=== PATIENT | female | born 1950 | race Caucasian/White ===

== ENCOUNTER 2019-11-02 00:12 | Emergency (ER) | payer MEDICARE, OTHER ==
--- NOTE | 2019-11-02 00:31 | ED Physician Documentation ---
PD HPI HEAD INJURY - Stated complaint Stated Complaint: EYE PX/FALL - Chief complaint Chief Complaint: Trauma Hd/Nk - History obtained from History obtained from: Patient - History of Present Illness Mechanism of head injury: Fell Where head injury occurred: A house / apartment Timing - onset: How many hours ago (1.5) Pain level now: 4 Location of injury: Right, Front Quality of pain: Pain Associated symptoms: LOC (patient is uncertain if she lost consciousness). No: Nausea / vomiting, Neck pain Contributing factors: No: Anticoagulated, Intoxicated Similar symptoms before: Has not had sx before Recently seen: Not recently seen - Additional information Additional information: patient is visiting from [place]. Approximately 90 minutes [employer], she was ambulating in the house in which she is staying and became dizzy. She denies vertigo; she describes it as lightheadedness, feeling unsteady, and generalized weakness. She fell to the ground, uncertain if she lost consciousness. She says it took her several attempts to stand back up due to ongoing lightheadedness and generalized weakness, but was eventually able to get up and alert others in the house of her injury. She sustained right facial injury with eyelid laceration. C/o right facial and periorbital pain, denies generalized headache, denies chest pain, shortness of breath. She is a retired student worker Review of Systems Eyes: denies: Loss of vision, Decreased vision, Photophobia Cardiac: reports: Reviewed and negative Respiratory: reports: Reviewed and negative GI: reports: Reviewed and negative : denies: Incontinent Musculoskeletal: reports: Extremity pain (mild left thumb pain, mild left wrist pain). denies: Neck pain, Back pain Neurologic: reports: Generalized weakness (resolved), Head injury, LOC (possibly (patient isn't certain)). denies: Focal weakness, Numbness, Confused, Altered mental status, Headache (right facial pain but denies generalized headache) PD PAST MEDICAL HISTORY - Past Medical History Past Medical History: Yes Endocrine/Autoimmune: HyPOthyroidism Psych: Bipolar disorder - Past Surgical History Past Surgical History: Yes Ortho: Hip replacement - Present Medications Home Medications: Ambulatory Orders Medication Instructions Recorded Confirmed Biotin 11/02/19 Calcium Carbonate [Calcium] 600 mg PO 11/02/19 Cholecalciferol (Vitamin D3) 11/02/19 [Vitamin D3] Finasteride 11/02/19 Levothyroxine [Synthroid] 11/02/19 Liothyronine Sodium [Cytomel] 11/02/19 Sertraline [Zoloft] 11/02/19 Vitamin B Complex 11/02/19 lamoTRIgine [LaMICtal] 11/02/19 - Allergies Allergies/Adverse Reactions: Allergies Allergy/AdvReac Type Severity Reaction Status Date / Time Penicillins Allergy Rash Verified 11/02/19 00:20 Sulfa (Sulfonamide Allergy Rash Verified 11/02/19 00:20 Antibiotics) - Living Situation Living Arrangement: reports: At home (visiting from [place]) - Social History Does the pt smoke?: No PD ED PE NORMAL - Vitals Vital signs reviewed: Yes - General General: Alert and oriented X 3, No acute distress, Well developed/nourished - HEENT HEENT: PERRL, EOMI - Neck Neck: Supple, no meningeal sign, Other (mild bony tenderness posterior cervical spine without step off or obvious deformity) - Cardiac Cardiac: RRR, No murmur - Respiratory Respiratory: No respiratory distress, Clear bilaterally - Abdomen Abdomen: Soft, Non tender - Neuro Neuro: Alert and oriented X 3, solderer torch 2-12 intact, No motor deficit, No sensory deficit, Normal speech Eye Opening: Spontaneous Motor: Obeys Commands Verbal: Oriented GCS Score: 15 - Psych Psych: Normal mood, Normal affect PD ED PE EXPANDED - HEENT HEENT: Other (swelling, tenderness right periorbit, supraorbit, and infraorbit as well as right zygoma. no crepitus. right periorbital echymosis. there is a complex laceration of the right lower eyelid; the medial third of the lower eyelid is intact. there is a laceration through the lid margin as well as laceration of the lateral third of the lower lid and possibly avulsed segment of the lateral aspect ) Results - Vitals Vitals: Vital Signs - 24 hr 11/02/19 11/02/19 11/02/19 00:15 02:19 04:26 Temperature 37.6 C H 37.1 C Heart Rate 79 78 68 Respiratory 18 18 16 Rate Blood Pressure 142/77 H 149/86 H 139/73 H O2 Saturation 100 98 97 Oxygen O2 Source Room air - EKG (time done) No standard instances Rate: Rate (enter#) (77) Rhythm: NSR [place]: Normal Intervals: Normal [place] QRS: Normal Ischemia: Normal ST segments - Labs Labs: Laboratory Tests 11/02/19 11/02/19 11/02/19 01:10 01:10 01:10 WBC 12.2 H RBC 4.09 L Hgb 13.6 Hct 40.9 MCV 100.0 H MCH 33.3 H MCHC 33.3 RDW 12.4 Plt Count 281 MPV 9.1 Neut # (Auto) 7.8 H Lymph # (Auto) 3.1 [place] # (Auto) 1.1 H Eos # (Auto) 0.2 Baso # (Auto) 0.1 Absolute Nucleated RBC 0.00 Nucleated RBC % 0.0 Sodium 139 Potassium 3.8 Chloride 104 Carbon Dioxide 25 Anion Gap 10.0 BUN 17 Creatinine 0.9 Estimated GFR (MDRD) 62 L Glucose 111 H Calcium 9.3 Troponin I High Sens 4.2 - Rads (name of study) CT head Radiology: Prelim report reviewed, See rad report CT cervical spine Radiology: Prelim report reviewed, See rad report CT facial bones Radiology: Prelim report reviewed, See rad report PD MEDICAL DECISION MAKING - ED course Complexity details: reviewed results, re-evaluated patient, considered differential, d/w patient ED course: reassuring EKG and blood tests, and no acute injury on CT head/neck/facial bones. She has a complex laceration of the right lower eyelid with possible avulsion/absent lateral lower lid margin. d/w Dr. Andersen at [facility] who accepts patient for transfer to [facility]. Patient had already performed internet search prior to my HPI and had told me she would have preferred to go to [facility] but did not know how she would be able to get there, so she (patient) is pleased with this transfer. Departure - Departure Disposition: 02 Transfer Acute Care Hosp Clinical Impression: Syncope Qualifiers: Syncope type: unspecified Qualified Code(s): R55 - Syncope and collapse Complex laceration of face Qualifiers: Encounter type: initial encounter Qualified Code(s): S01.91XA - Laceration without foreign body of unspecified part of head, initial encounter Condition: Good Discharge Date/Time: 11/02/19 04:40
[2019-11-02] MEDS ORDERED: TETANUS/DIPHTHERIA/PERTUSSIS 0.5 ML SYRINGE IM ONE (00:58)
[2019-11-02 01:15] LABS: BASOPHILS # (AUTO) 0.1 10^3/uL (0.0-0.1); BASOPHILS % (AUTO) 0.6 %; EOSINOPHILS # (AUTO) 0.2 10^3/uL (0.0-0.7); EOSINOPHILS % (AUTO) 1.6 %; HGB - HEMOGLOBIN 13.6 g/dL (12.0-16.0); LYMPHOCYTES # (AUTO) 3.1 10^3/uL (1.5-3.5); MEAN CORPUSCULAR HEMOGLOBIN 33.3 pg (27.0-31.0); MEAN CORPUSCULAR HGB CONC 33.3 g/dL (32.0-36.0); MEAN PLATELET VOLUME 9.1 fL (7.9-10.8); MONOCYTES # (AUTO) 1.1 10^3/uL (0.0-1.0); MONOCYTES % (AUTO) 8.8 %; NEUTROPHILS # (AUTO) 7.8 10^3/uL (1.5-6.6); NEUTROPHILS % (AUTO) 63.6 %; PLT - PLATELET COUNT 281 10^3/uL (130-450); RED BLOOD COUNT 4.09 10^6/uL (4.20-5.40); RED CELL DISTRIBUTION WIDTH 12.4 % (12.0-15.0); WHITE BLOOD COUNT 12.2 x10^3/uL (4.8-10.8)
[2019-11-02 01:24] LABS: CALCIUM 9.3 mg/dL (8.5-10.3); CREATININE 0.9 mg/dL (0.4-1.0)
--- NOTE | 2019-11-02 01:46 | CT Report ---
Reason: fall, head injury, LOC Procedure Date: 11/02/2019 Accession Number: [id number] / [id number] Procedure: CT - HEAD WO CPT Code: Final Report FULL RESULT: EXAM: CT HEAD EXAM DATE: 11/02/2019 01:17 AM. CLINICAL HISTORY: Fall, head injury, loss of consciousness. COMPARISON: None. TECHNIQUE: Multiaxial CT images were obtained from the foramen magnum to the vertex. Reformats: Sagittal and coronal. IV contrast: None. In accordance with CT protocol optimization, one or more of the following dose reduction techniques were utilized for this exam: automated exposure control, adjustment of mA and/or KV based on patient size, or use of iterative reconstructive technique. FINDINGS: Parenchyma: No intraparenchymal hemorrhage. No evidence of mass, midline shift, or CT findings of infarction. Mathews-white differentiation is distinct. Extraaxial Spaces: Enlarged primarily frontal cortical CSF spaces. No subdural or epidural collections identified. Ventricles: Normal in size and position. Sinuses and Orbits: Imaged paranasal sinuses, orbits, and mastoids show no significant abnormality. Bones: No evidence of fracture or calvarial defect. Other: None. IMPRESSION: No acute intracranial abnormality. [facility]
--- NOTE | 2019-11-02 01:50 | CT Report ---
Reason: fall, neck tenderness Procedure Date: 11/02/2019 Accession Number: [id number] / [id number] Procedure: CT - CERVICAL SPINE WO CPT Code: Final Report FULL RESULT: EXAM: CT CERVICAL SPINE WITHOUT CONTRAST DATE: 11/02/2019 01:36 AM. HISTORY: Fall, neck tenderness. COMPARISONS: None. TECHNIQUE: Thin-section axial images were acquired of the cervical spine without contrast. Post-processing: Coronal and sagittal reformats. Other: None. In accordance with CT protocol optimization, one or more of the following dose reduction techniques were utilized for this exam: automated exposure control, adjustment of mA and/or KV based on patient size, or use of iterative reconstructive technique. FINDINGS: Alignment: No scoliosis or spondylolisthesis. Bones: No acute fracture seen. Interspace Levels/Facets: C1-C2: Degenerative changes between the anterior arch of C1 and the odontoid. C2-C3: Degenerative joint disease in the right facet joint. C3-C4: Mild degenerative disk disease. Posterior disk osteophyte complex contacting the cord. Degenerative joint disease in the right facet joint. C4-C5: Moderate to severe degenerative disk disease. Posterior disk osteophyte complex with severe spinal stenosis. Bilateral uncovertebral joint spurring with bilateral foraminal stenosis. C5-C6: Moderate degenerative disk disease. Posterior disk osteophyte complex with central spinal stenosis. Bilateral foraminal stenosis. C6-C7: Moderate degenerative disk disease with posterior disk osteophyte complex and central spinal stenosis. Bilateral uncovertebral joint spurring with severe bilateral foraminal stenosis. C7-T1: Unremarkable. Other: No prevertebral soft tissue swelling. Bilateral carotid artery calcifications. Mild scarring at the lung apices. IMPRESSION: 1. No acute fracture or dislocation seen. 2. Multilevel degenerative disk disease and degenerative joint disease with multilevel spinal stenosis and foraminal stenosis. [facility]IA
--- NOTE | 2019-11-02 02:02 | CT Report ---
Reason: fall, right facial injury Procedure Date: 11/02/2019 Accession Number: [id number] / [id number] Procedure: CT - MAXILLOFACIAL WO CPT Code: Final Report FULL RESULT: EXAM: CT MAXILLOFACIAL WITHOUT CONTRAST EXAM DATE: 11/02/2019 01:37 AM. CLINICAL HISTORY: Fall, right facial injury. COMPARISONS: None. TECHNIQUE: Thin-section axial images were acquired of the face without contrast. Post-processing: Coronal and sagittal reformats. Other: None. In accordance with CT protocol optimization, one or more of the following dose reduction techniques were utilized for this exam: automated exposure control, adjustment of mA and/or KV based on patient size, or use of iterative reconstructive technique. FINDINGS: Soft Tissue: There is soft tissue swelling over the right frontal bone and over the right orbit. Orbits: Symmetric and unremarkable. Bones: No fracture or bone lesion. Temporomandibular Joints: The temporomandibular joints are symmetric and normally located. Sinuses: Normal. No mucosal thickening or fluid levels. Other: None. IMPRESSION: 1. Soft tissue swelling over the right frontal bone and over the right orbit otherwise negative study. No facial fractures. [facility]IA
[2019-11-02] MEDS ORDERED: ERYTHROMYCIN OPHTH OINT 1 GM TUBE RIGHTEYE STA (04:04)
[2019-11-02 04:27] VITALS: BP 139/73
== END 2019-11-02 04:40 | disposition short-term general hospital (02) ==
LOC: ED 00:12
DX: R55 Syncope and collapse (principal); S01.111A Laceration without foreign body of right eyelid and periocular area, initial encounter; M79.645 Pain in left finger(s); M25.532 Pain in left wrist; W18.30XA Fall on same level, unspecified, initial encounter; Z23 Encounter for immunization; M47.812 Spondylosis without myelopathy or radiculopathy, cervical region; M50.31 Other cervical disc degeneration, high cervical region; M48.02 Spinal stenosis, cervical region
CPT/HCPCS: 36415; 70450; 70486; 72125; 80048; 84484; 85025; 90471; 90715; 93005; 99284; 99285; J3490

== ENCOUNTER 2019-11-02 05:45 | Outpatient (CLI) | payer MEDICARE, OTHER | END 2019-11-02 05:46 | disposition short-term general hospital (02) | LOC: EMS 05:45 | PROVIDERS: ATTEND Surgery | DX: S01.111A Laceration without foreign body of right eyelid and periocular area, initial encounter (principal); R55 Syncope and collapse; W10.9XXA Fall (on) (from) unspecified stairs and steps, initial encounter; Y93.89 Activity, other specified | CPT/HCPCS: A0425; A0426 ==